=== PATIENT | male | born 2005 | race Caucasian/White ===

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

== ENCOUNTER 2023-02-11 02:28 | Emergency (ER) | payer OTHER ==
[2023-02-11 02:39] VITALS: BP 149/83; O2SAT 98
--- NOTE | 2023-02-11 02:55 | ED Physician Documentation ---
PD HPI HEENT - Stated complaint Stated Complaint: C+/BLOOD/THROAT - Chief complaint Chief Complaint: Resp - History obtained from History obtained from: Patient - Additional information Additional information: 17-year-old male with no reported past medical history presents by private vehicle from home for an episode of coughing up blood. Patient states that 2 days ago he burned the back of his throat on some very hot food. He was very shortly afterwards he was diagnosed with COVID-19. He has had a nonproductive cough and a sore throat since that time. This evening after an episode of coughing he had bleeding from the back of his throat and coughed up several small blood clots. The bleeding has been controlled, but after he googled causes of bleeding from his throat he became very concerned and had his mother bring him into the ER for evaluation. Review of Systems Constitutional: denies: Fever, Chills Throat: reports: Sore throat. denies: Dental pain / toothache, Oral lesions / sores Respiratory: reports: Cough. denies: Dyspnea, Wheezing PD PAST MEDICAL HISTORY - Past Medical History Past Medical History: No HEENT: Chronic sinusitis - Past Surgical History Past Surgical History: No - Present Medications Home Medications: Ambulatory Orders Medication Instructions Recorded Confirmed Hydrocodone Bit/Homatrop Me-Br 5 ml PO Q6H PRN #100 ml 02/11/23 [Hycodan 5 mg-1.5 mg/5 ml Soln] - Allergies Allergies/Adverse Reactions: Allergies Allergy/AdvReac Type Severity Reaction Status Date / Time No Known Drug Allergies Allergy Verified 02/11/23 02:39 - Social History Does the pt smoke?: No Smoking Status: Never smoker Does the pt drink ETOH?: No Does the pt have substance abuse?: No - Immunizations Immunizations are current?: Yes - POLST Patient has POLST: No PD ED PE NORMAL - Vitals Vital signs reviewed: Yes - General General: Alert and oriented X 3, No acute distress, Well developed/nourished - HEENT HEENT: Atraumatic, PERRL, EOMI, Moist mucous membranes, Other (irritated tonsillar tissue L hand side. No active bleeding. 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 Recent C19 infection. Patient has no active bleeding on exam, there does appear to be irritated tonsillar tissue on the left hand side. Possible bleeding secondary to aggravation from repeated coughing superimposed on irritated tissue from thermal injury. Strep swab negat regis. Cough medication sent to pharmacy of choice. Patient was advised to avoid irritating foods and to use ice water gargles for comfort and to prevent further rebleeding. Strict ED return precautions discussed at bedside with patient and his mother. Departure - Departure Disposition: Home, Self Care Clinical Impression: Bleeding Condition: Stable Instructions: ED URI Viral Prescriptions: Hydrocodone Bit/Homatrop Me-Br [Hycodan 5 mg-1.5 mg/5 ml Soln] 5 ml PO Q6H PRN #100 ml PRN Reason: Cough Comments: Avoid foods that are irritating to your throat for the next 3 to 4 days. Use ice cold water gargles as needed to prevent bleeding. A prescription for Hycodan cough medication has been [facility]. This helps to suppress your cough so that you do not irritate your throat further. If you notice bleeding despite using the ice water gargles and the cough medication I recommend coming back to the emergency department for additional evaluation. Forms: PCP List Discharge Date/Time: 02/11/23 03:47
[2023-02-11 03:13] LABS: RAPID STREP SCREEN Negative (Negative)
[2023-02-11] MEDS ORDERED: HYDROcodone/ACETAM 7.5 MG/325 MG 15 ML UDC PO STA (03:30)
== END 2023-02-11 03:47 | disposition home or self-care (01) ==
LOC: ED 02:28
DX: R58 Hemorrhage, not elsewhere classified (principal)
CPT/HCPCS: 87070; 87430; 99283; A9270

== ENCOUNTER 2023-10-23 08:09 | Emergency (ER) | payer OTHER ==
[2023-10-23 08:21] VITALS: BP 128/97; O2SAT 99
--- NOTE | 2023-10-23 08:30 | ED Physician Documentation ---
PD HPI URI - Stated complaint Stated Complaint: FEVER, GIORDANO - Chief complaint Chief Complaint: Fever - History obtained from History obtained from: Patient PD PAST MEDICAL HISTORY - Past Medical History HEENT: Chronic sinusitis - Past Surgical History Past Surgical History: No - Present Medications Home Medications: Ambulatory Orders Medication Instructions Recorded Confirmed Ondansetron Odt [Zofran] 4 mg TL Q6H PRN #5 tablet 10/23/23 SUMAtriptan succinate 50 mg PO Q6H PRN #5 tab 10/23/23 - Allergies Allergies/Adverse Reactions: Allergies Allergy/AdvReac Type Severity Reaction Status Date / Time No Known Drug Allergies Allergy Verified 10/23/23 08:19 - Social History Does the pt smoke?: No Smoking Status: Never smoker Does the pt drink ETOH?: No Does the pt have substance abuse?: No - Immunizations Immunizations are current?: Yes - POLST Patient has POLST: No PD ED PE NORMAL - Vitals Vital signs reviewed: Yes - General General: Alert and oriented X 3, Well developed/nourished - HEENT HEENT: Ears normal, Pharynx benign - Neck Neck: Supple, no meningeal sign, No adenopathy - Cardiac Cardiac: RRR, No murmur - Respiratory Respiratory: No respiratory distress, Clear bilaterally - Abdomen Abdomen: Soft, Non tender - Derm Derm: Normal color, Warm and dry - Neuro Neuro: Alert and oriented X 3, No motor deficit, No sensory deficit, Normal speech Results - Vitals Vitals: Vital Signs - 24 hr 10/23/23 08:14 Temperature 36.9 C Heart Rate 104 H Respiratory 18 Rate Blood Pressure 128/97 H O2 Saturation 99 Oxygen O2 Source Room air PD Medical Decision Making - ED course Complexity details: considered differential (has had congestion and cough for 3- 4 days with some improvement the past day, but then had abrupt temp to 103 this morning. Took some Excedrin. Has also had migraine type GIORDANO since yesterday. GIORDANO is feeling similar to ones he gets about every 2-3 weeks the past year or so. ), d/w patient ED course: his headache is right sided, and typically is, with light and noise sensitivity, some blurring vision right eye. Eill improve with Excedrin or Ibuprofen and sleeping dark room for several hours. No prior meds otherwise and has not sought evaluation for it. Current symptoms to ED are not the GIORDANO, but the concern about high fever. has had URI sypotoms the past 3-4 days and felt it unusual for higher fever to now develop. Some scratchy throat but not very painful. No adenopathy. Throat does not appear streplike, which could cause the symptoms. He appears well and not septic/meningitic. shared decision based on my improseeion that head CT/LP spinal tap are not needed as pt clinically not that ill at this time. Can have him try Imitrex on future migraines as well as zofran. Departure - Departure Disposition: Home, Self Care Clinical Impression: Viral URI, Migraine Condition: Stable Record reviewed to determine appropriate education?: Yes Instructions: ED Headache Migraine, ED Viral Syndrome Follow-Up: David Lawrence [Primary Care Provider] - Prescriptions: SUMAtriptan succinate 50 mg PO Q6H PRN #5 tab PRN Reason: Migraine Ondansetron Odt [Zofran] 4 mg TL Q6H PRN #5 tablet PRN Reason: Nausea / Vomiting Comments: Your symptoms sound most likely a viral illness. The duration can be 5 to 7 days of still having the fever and developed now is less common than earlier in the course but not unusual. Exam, it did not identify any obvious bacterial type causes for the fever. See if you develop worsening sore throat or swollen glands or such but that this point it does not look strep like. Stay well-hydrated. Tylenol or ibuprofen or aspirin as needed for fevers or pains. Regarding your headache, since it does sound migraine-like and similar to ones you get in the past, I did do not feel the fever is related to the headache (you do not clinically look like having meningitis etc.). We did give migraine particular medicine today to see if it works better for your migraine. Additionally some Tylenol. I wrote a prescription for a small supply of the migraine medicines along with the nausea medicine to take in combination for recurrent migraines and see if it works better overall and more promptly resolves than just the aspirin alone. Follow-up with your primary care. I sent your prescription to your primary preferred pharmacy. Forms: PCP List Discharge Date/Time: 10/23/23 09:02
[2023-10-23] MEDS: SUMAtriptan 25 MG TABLET PO STA (08:51)
[2023-10-23] MEDS: ACETAMINOPHEN 325 MG TABLET PO STA (08:51)
== END 2023-10-23 09:02 | disposition home or self-care (01) ==
LOC: ED 08:09
DX: J06.9 Acute upper respiratory infection, unspecified (principal); G43.909 Migraine, unspecified, not intractable, without status migrainosus
CPT/HCPCS: 99283; A9270